=== PATIENT | female | born 1960 | race Caucasian/White ===

== ENCOUNTER 2020-09-25 14:33 | Emergency (ER) | payer SELFPAY ==
--- NOTE | 2020-09-25 15:28 | ER Document Report ---
ED Medical Screen (RME) - General Chief Complaint: Abdominal Pain Stated Complaint: ABDOMINAL PAIN Time Seen by Provider: 09/25/20 15:24 Mode of Arrival: Ambulatory Information source: Patient Notes: HPI; 60-year-old female presents the emergency room for recent diagnosis of pancreatitis. Patient states she saw her primary care physician on the for abdominal pain had blood work drawn was discharged home that day on Cipro and Omeprazole states her pain was generalized sharp and stabbing. She states she was called by the office today to review her lab results and was sent to emergen cy room for acute pancreatitis. She states she has been taking the medications as prescribed and has absolutely no pain at this time. No nausea, no vomiting, no diarrhea. No COVID-19 exposure. No history of pancreatitis. Denies any use of alcohol. No new medications. PE: Alert and oriented x3. Lungs: Clear to auscultation without rales, rhonchi, wheezes. Heart: Regular rate rhythm without murmurs, rubs, gallops. I have greeted and performed a rapid initial assessment of this patient. A comprehensive ED assessment and evaluation of the patient, analysis of test results and completion of the medical decision making process will be conducted by additional ED providers. I have specifically instructed the patient or family members with the patient to immediately return to any nursing staff should anything change in the patient's condition or with their chief complaint. TRAVEL OUTSIDE OF THE [place] IN LAST 30 DAYS: No Physical Exam - Vital signs Vitals: Temp Pulse Resp BP Pulse Ox 98.0 F 82 18 147/76 H 96 09/25/20 15:25 09/25/20 15:25 09/25/20 15:25 09/25/20 15:25 09/25/20 15:25 Course - Vital Signs Vital signs: Temp Pulse Resp BP Pulse Ox 98.0 F 82 18 147/76 H 96 09/25/20 15:25 09/25/20 15:25 09/25/20 15:25 09/25/20 15:25 09/25/20 15:25
[2020-09-25 16:28] LABS: APPEARANCE,URINE SLIGHTLY-CLOUDY; BILIRUBIN,URINE NEGATIVE (NEGATIVE); COLOR,URINE AMBER; GLUCOSE, URINE NEGATIVE (NEGATIVE); KETONES,URINE NEGATIVE (NEGATIVE); LEUKOCYTE ESTERASE,URINE NEGATIVE (NEGATIVE); NITRITE,URINE NEGATIVE (NEGATIVE); PROTEIN,URINE 30 mg/dL (NEGATIVE); URINE SPECIFIC GRAVITY 1.024; UROBILINOGEN,URINE NEGATIVE mg/dL (<2.0)
[2020-09-25 16:33] LABS: ABSOLUTE EOSINOPHILS # (AUTO) 0.1 10^3/uL (0.0-0.6); ABSOLUTE MONOCYTES (AUTO) 0.7 10^3/uL (0.1-1.4); BASOPHILS % (AUTO) 0.6 % (0-2); EOSINOPHILS % (AUTO) 0.6 % (0-6); HEMATOCRIT 41.6 % (36.0-47.0); HEMOGLOBIN 14.2 g/dL (12.0-15.5); LYMPHOCYTES % (AUTO) 23.1 % (13-45); MEAN CORPUSCULAR HEMOGLOBIN 30.7 pg (27.0-33.4); MEAN CORPUSCULAR VOLUME 90 fl (80-97); MONOCYTES % (AUTO) 7.4 % (3-13); PLATELET COUNT 326 10^3/uL (150-450); RED BLOOD COUNT 4.61 10^6/uL (3.72-5.28); RED CELL DISTRIBUTION WIDTH 13.1 % (11.5-14.0); SEGMENTED NEUTROPHILS % (AUTO) 68.3 % (42-78); TOTAL CELLS COUNTED % (AUTO) 100 %; WHITE BLOOD COUNT 8.8 10^3/uL (4.0-10.5)
[2020-09-25 16:59] LABS: ALBUMIN 4.1 g/dL (3.5-5.0); ALKALINE PHOSPHATASE 279 U/L (38-126); AMYLASE 58 U/L (30-110); ANION GAP 11 (5-19); ASPARTATE AMINO TRANSFERASE 46 U/L (14-36); BILIRUBIN,DIRECT 0.5 mg/dL (0.0-0.4); BILIRUBIN,TOTAL 0.8 mg/dL (0.2-1.3); BLOOD UREA NITROGEN 12 mg/dL (7-20); CALCIUM 9.3 mg/dL (8.4-10.2); CARBON DIOXIDE 27 mmol/L (22-30); CHLORIDE 101 mmol/L (98-107); GLUCOSE 101 mg/dL (75-110); POTASSIUM 3.9 mmol/L (3.6-5.0); TOTAL PROTEIN 7.2 g/dL (6.3-8.2)
--- NOTE | 2020-09-25 23:19 | ER Document Report ---
ED GI/ - General Chief Complaint: Abnormal Lab Results Stated Complaint: ABDOMINAL PAIN Time Seen by Provider: 09/25/20 15:24 Primary Care Provider: DEANDRE LANDEROS MD [ACTIVE STAFF] - Follow up in 3-5 days JAMAL ROSA MD [Primary Care Provider] - Follow up in 3-5 days Mode of Arrival: Ambulatory TRAVEL OUTSIDE OF THE [place] IN LAST 30 DAYS: No - HPI Notes: 09/25/20 23:21 Patient is a 60-year-old female with no significant past medical history who presents from recommendation of her PCP for abnormal labs. Patient states she was having abdominal pain last week on September 20. She went to her PCPs office who justino blood work. They also started her on Cipro and omeprazole. She finished the Cipro yesterday. Patient's lab work returned today and her PCP referred her to the ER as she had elevated blood tests. Patient states her abdominal pain has completely resolved. She ate spaghetti yesterday without difficulty. She has had no fevers or change in bowel habits. Patient states she is completely back at baseline. She has not had any abdominal surgeries. She does not drink any alcohol. - Related Data Allergies/Adverse Reactions: ampicillin Allergy (Verified 09/25/20 20:58) clarithromycin [From Biaxin] Allergy (Verified 09/25/20 20:58) clindamycin Allergy (Verified 09/25/20 20:58) Home Medications: CIPRO. OMEPRAZOLE Past Medical History - General Information source: Patient - Social History Smoking Status: Never Smoker Frequency of alcohol use: None Drug Abuse: None Family History: Reviewed & Not Pertinent Review of Systems - Review of Systems Notes: CONSTITUTIONAL: No fever, fatigue or weight loss. SKIN: No rash. HENT: No congestion, ear pain, or sore throat. EYES: No recent vision problems or eye pain. CARDIOVASCULAR: No chest pain or edema. RESPIRATORY: No cough, shortness of breath, congestion, or wheezing. GASTROINTESTINAL: No abdominal pain, nausea, vomiting, bloody stools or diarrhea. GENITOURINARY: No dysuria. MUSCULOSKELETAL: No joint pain or swelling. LYMPHATIC: No swollen glands. NEUROLOGIC: No seizures. No headache, focal weakness or sensory changes. HEMATOLOGIC: No unusual bruising or bleeding. PSYCHIATRIC: No depression or anxiety. Physical Exam - Vital signs Vitals: Temp Pulse Resp BP Pulse Ox 98.0 F 82 18 147/76 H 96 09/25/20 15:25 09/25/20 15:25 09/25/20 15:25 09/25/20 15:25 09/25/20 15:25 - General General appearance: Appears well Notes: VITAL SIGNS: Within normal limits. GENERAL: No acute distress, non-toxic appearance. HEAD: Normal with no signs of head trauma. EYES: EOMI, conjunctiva normal, no discharge. EARS: Hearing grossly intact. NOSE: Normal. NECK: Normal range of motion, no tenderness, supple, no lymphadenopathy, No adenopathy, no JVD. CHEST: Clear breath sounds bilaterally. No wheezes, rales, or rhonchi. CARDIAC: Regular rate and rhythm. VASCULAR: No Edema. Peripheral pulses normal and equal in all extremities. ABDOMEN: Normal and soft with no tenderness, no masses or pulsatile masses. No epigastric or right upper quadrant tenderness GENITOURINARY: Normal, No tenderness MUSCULOSKELETAL: Good range of motion of all major joints. Extremities without clubbing, cyanosis or edema. NEUROLOGICAL: Alert and oriented x 3. No focal sensory or strength deficits. Speech normal. Follows commands appropriately. PSYCHIATRIC: Normal Affect, judgement and mood. SKIN: Normal appearance with no rashes or lesions. Course - Re-evaluation Re-evalutation: 09/25/20 23:26 Patient appears well on exam. She is in no acute distress. Her lab work from last week does show an elevated lipase as well as total bilirubin and alkaline phosphatase from her records. Her numbers are better today. I recommended we obtain an ultrasound to rule out gallstone pancreatitis. Patient is in agreement. Do not think she requires a CT scan as she is completely pain-free. Patient's ultrasound shows a mildly dilated common bile duct. No choledocholithiasis. No pancreatic masses. Patient continues to be pain-free. Her lipase is 500 which is much better than her previous. Do not believe patient needs to be admitted as she is eating and drinking and has no pain. Patient was instructed to follow-up with GI as she may need to ERCP. She was also instructed to follow-up with her family doctor. Patient was given strict return precautions. She is very agreeable to the plan. She was instructed to stay hydrated. 09/26/20 05:12 - Vital Signs Vital signs: Temp Pulse Resp BP Pulse Ox 97.7 F 82 19 120/75 96 09/26/20 01:50 09/26/20 01:50 09/26/20 01:50 09/26/20 01:50 09/26/20 01:50 - Laboratory Result Diagrams: 09/25/20 15:57 09/25/20 15:57 Laboratory results interpreted by me: 09/25/20 09/25/20 15:57 15:57 Direct Bilirubin 0.5 H AST 46 H ALT 94 H Alkaline Phosphatase 279 H Lipase 507.5 H Urine Protein 30 H - Diagnostic Test Radiology reviewed: Image reviewed, Reports reviewed Discharge - Discharge Clinical Impression: Transaminitis Abdominal pain Qualifiers: Abdominal location: epigastric Qualified Code(s): R10.13 - Epigastric pain Pancreatitis Qualifiers: Chronicity: acute Pancreatitis type: unspecified pancreatitis type Acute pancreatitis complication: unspecified Qualified Code(s): K85.90 - Acute pancreatitis without necrosis or infection, unspecified Condition: Stable Disposition: HOME, SELF-CARE Instructions: Abdominal Pain ([facility]), Pancreatitis ([facility]) Additional Instructions: Follow-up with the GI doctor and your PCP. Make sure you are staying hydrated. Please return to the ER for any fevers, chills, abdominal pain, vomiting, any other concerning symptoms. Referrals: DEANDRE LANDEROS MD [ACTIVE STAFF] - Follow up in 3-5 days JAMAL ROSA MD [Primary Care Provider] - Follow up in 3-5 days
--- NOTE | 2020-09-26 01:01 | RADIOLOGY REPORT (SQ) ---
EXAM: US Abdomen Limited, Right Upper Quadrant EXAM DATE/TIME: 09/25/2020 at 11:47 PM CLINICAL HISTORY: The patient is 60 years old and is Female; elevated LFTS, recent pancreatitis dx TECHNIQUE: Real-time ultrasound of the right upper quadrant with image documentation. COMPARISON: No relevant prior studies available. FINDINGS: LIMITATIONS: Suboptimal exam secondary to bowel gas. LIVER: The liver measures 13.6 cm in diameter. No obvious liver mass. The liver appears slightly echogenic, suggesting mild fatty infiltration. Hepatopetal flow is demonstrated in the portal vein. GALLBLADDER: The gallbladder is contracted and difficult to evaluate. There is echogenic material in the gallbladder, suggesting sludge. No obvious gallstones. COMMON BILE DUCT: On one image, the common bile duct is measured as 1.3 mm in diameter. However, on another image the common bile duct is measured as 7.6 mm. No obvious choledocholithiasis. PANCREAS: The pancreas appears somewhat thickened and echogenic. No discrete pancreatic mass visualized. RIGHT KIDNEY: The right kidney measures 11.6 cm in length. No solid or cystic renal mass visualized. No obvious intrarenal stone. No hydronephrosis. AORTA: The visualized abdominal aorta is normal in caliber. IMPRESSION: 1. Mildly dilated common bile duct measuring up to 7.6 mm. No obvious choledocholithiasis. 2. The gallbladder is contracted and difficult to evaluate. No obvious gallstones. Apparent sludge in the gallbladder.
[2020-09-26 01:54] VITALS: BP 120/75
== END 2020-09-26 01:54 | disposition home or self-care (01) ==
LOC: ER 14:33
DX: K85.90 Acute pancreatitis without necrosis or infection, unspecified (principal); K82.8 Other specified diseases of gallbladder; K83.8 Other specified diseases of biliary tract; R74.01 Elevation of levels of liver transaminase levels; Z79.899 Other long term (current) drug therapy; Z88.0 Allergy status to penicillin; Z88.1 Allergy status to other antibiotic agents
CPT/HCPCS: 36415; 76705; 80053; 81001; 82150; 83690; 85025; 99284